=== PATIENT | female | born 1955 | race Caucasian/White ===

== ENCOUNTER 2016-10-25 08:30 | Day surgery (SDC) | payer OTHER ==
[~2016-10-25] VITALS: Ht 170.2 cm; Wt 100.0 kg
[~2016-10-25 08:30] MED LIST: ALBU8.5H2 INHALATION; CARI350T PO; CELE100C85 PO; CYCL10TA9 PO; HYDR2TAB27 PO; IBUP-1827 PO; KETO10TA PO; OXYC-466 PO; OXYC1TAB24 PO; THYR15TA PO; ZLP5T PO
[2016-10-25] MEDS ORDERED: Dexamethasone 10 mg/mL Inj ONE (08:31)
[2016-10-25] MEDS ORDERED: Iohexol 240 mg/mL 10 mL Inj ONE (08:31)
[2016-10-25 09:02] VITALS: BP 118/80; PULSE 60; RESP 14; O2SAT 99
[2016-10-25 09:30] VITALS: BP 144/69; PULSE 54; RESP 14; O2SAT 99
[2016-10-25 09:33] VITALS: BP 143/85; PULSE 60; RESP 16; O2SAT 99
[2016-10-25 09:36] VITALS: BP 155/71; PULSE 57; RESP 16; O2SAT 98
--- NOTE | 2016-10-25 12:57 | PCM.PROC ---
Procedure Note Date of Service: Oct 25, 2016 Pre Procedure Diagnosis: PROCEDURE: LEFT C6 transforaminal epidural steroid injection PRE-PROCEDURE DIAGNOSIS: Cervical radiculopathy POST-PROCEDURE DIAGNOSIS: same INDICATION: 61-year-old patient with LEFT arm pain consistent with cervical radiculopathy PERFORMED BY: Yunier Isaacs MD DESCRIPTION OF PROCEDURE: Patient was met in the holding area. Consent was signed, site was confirmed and all questions were answered. Patient was taken to the procedure suite and placed supine on the procedure table. An IV was placed with TKO NS. The side of the neck was prepped and draped in sterile fashion. The image intensifier was rotated to an oblique view to visualize the proper neuroforamen. Local anesthesia with 1% lidocaine was injected into the skin and superficial subcutaneous tissue. A 2 inch 25-gauge Quincke spinal needle was advanced towards the inferior/posterior aspect of the neural foramina. After the SAP of the neuroforamina was contacted with the spinal needle the bevel was directed anterior. The view was then changed to an AP view and the tip of the needle was stopped lateral to the sagittal midline of the articular pillar. Radiopaque contrast was injected under live fluoroscopy which demonstrated outline of the spinal nerve, dorsal root ganglion as well as spread into the epidural space. No vascular uptake was noted. 1 cc 1% lidocaine was injected. After 1 minute with no neurologic sequela, 10 mg of Decadron was injected. This was followed by another half cc of 1% lidocaine ANESTHESIA: Local. EBL: None. No Blood Products Used COMPLICATIONS: None SPECIMENS: None POST-PROCEDURE DISPOSITION: Patient was returned to the holding area in stable condition. They were discharged home when all discharge criteria were met. Evaluation/Physical Exam before discharge revealed: Preprocedure pain: 5/10. Post procedure pain: 3/10 (poor historian) DISCHARGE MEDICATIONS: (none unless otherwise noted) ASSESSMENT/ FOLLOW UP: Keep followup appointment with Dr. Martin Isaacs MD * Pain Management * Anesthesiology Yunier Isaacs MD Oct 25, 2016 12:57
[2016-12-02] MEDS ORDERED: ZOLP10TA5 PO (12:16)
[2016-12-02] MEDS ORDERED: OXYC1TAB24 PO (12:16)
[2016-12-02] MEDS ORDERED: armour thyroid (12:16)
[2016-12-02] MEDS ORDERED: CELE100C85 PO (12:16)
== END 2016-10-25 23:59 | disposition home or self-care (01) ==
LOC: END 08:30
PROVIDERS: ATTEND Anesthesiology Pain Medicine
DX: M54.12 Radiculopathy, cervical region (principal); M54.2 Cervicalgia
CPT/HCPCS: 64479; J1100

== ENCOUNTER 2016-12-03 11:38 | Inpatient (IN) | payer OTHER ==
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
[2016-12-03] VITALS (9 sets, daily range): BP systolic 128–171; BP diastolic 66–99; PULSE 60–101; RESP 10–20; O2SAT 91–99
[~2016-12-03] VITALS: Ht 167.6 cm; Wt 100.9 kg
[2016-12-03] MEDS: Lactated Ringer's 1,000 ML IV SCH ×4 (05:00→18:33)
[~2016-12-03 11:38] MED LIST changes: -ALBU8.5H2 INHALATION; +Bacitracin 50,000 unit Inj IRRIGATION ONE; -CARI350T PO; -CYCL10TA9 PO; +CeFAZolin Inj 2 GM in IV Premix 1 EACH IV SCH; -HYDR2TAB27 PO; -IBUP-1827 PO; -KETO10TA PO; -OXYC-466 PO; -THYR15TA PO; +Thrombin Powder 5,000 Unit TOPICAL ONE; -ZLP5T PO; +ZOLP10TA5 PO; +armour thyroid
[2016-12-03] MEDS ORDERED: fentaNYL-PF 50 mCg/mL 2 mL Inj IVPUSH PRN (13:45)
[2016-12-03] MEDS ORDERED: Phenylephrine 10,000 mCg/mL Inj IVPUSH PRN (13:45)
[2016-12-03] MEDS ORDERED: Ondansetron 2 mg/mL 2 mL Inj IVPUSH PRN ×3 (13:45→17:25)
[2016-12-03] MEDS ORDERED: Lactated Ringer's 500 ML IV PRN (13:45)
[2016-12-03] MEDS ORDERED: EPHEDrine Sulfate 50 mg/mL Inj IVPUSH PRN (13:45)
[2016-12-03] MEDS ORDERED: Dexamethasone 4 mg/mL Inj IVPUSH PRN (13:45)
[2016-12-03] MEDS ORDERED: Lactated Ringer's 1,000 ML IV SCH (13:45)
[2016-12-03] MEDS ORDERED: MetoCLOpramide 5 mg/mL 2 mL Inj IVPUSH PRN (13:45)
[2016-12-03] MEDS ORDERED: HYDROmorphone 1 mg/mL Inj IVPUSH PRN ×2 (13:45→17:25)
--- NOTE | 2016-12-03 13:45 | PCM.HPANE ---
Patient Data Surgeon Admitting Provider: Attending Provider:Bruno Salazar MD Primary Care Physician:Odilia Arteaga MD Other Provider:Stacey Enriquezingham Anesthesia Reason for Visit Cervical Radiculopathy Ht/WT & BMI Height (Feet): 5 Height (Inches): 6 Weight (Kilograms): 100.9 Body Mass Index 35.00 Allergies Coded Allergies: chlorhexidine (Unverified Allergy, Unknown, 12/02/16) latex (Verified Allergy, Unknown, UNKNOWN, 03/06/16) tramadol (Verified Allergy, Unknown, UNKNOWN, 03/06/16) nortriptyline (Verified Adverse Reaction, Severe, FAINTING, 03/06/16) Uncoded Allergies: CHLORHEXADINE GLUCONATE WIPES (Allergy, Severe, BURNING/REDNESS/ITCHING, 03/08/16) Past Anesthesia History Anesthesia History: Denies:: Anesthesia Reactions, Malignant Hyperthermia Diabetes History Hx Diabetes?: No Current Bedside Blood Glucose: 98 MRSA MRSA: No Medications Hypertension Medication: No Home Meds Incl Beta Blu: No Reported Medications Zolpidem 10 Mg [id number] Mg PO HS PRN For Insomnia Ref 0 12/02/16 oxyCODONE-Acetaminophen 5-325 mg 1 Each Tablet1 Tab PO Q6H PRN For Pain Ref 0 12/02/16 [armour thyroid] No Conflict Check7.5 Mg DAILY 12/02/16 Celecoxib 100 Mg [id number] Mg PO BID 12/02/16 Discontinued Reported Medications Celecoxib 100 Mg [id number] Mg PO BID 10/24/16 Hydromorphone (Dilaudid)2 Mg Tablet2-6 Mg PO HS PRN Pain 03/06/16 Cyclobenzaprine 10 Mg Rnvdrr58 Mg PO TID PRN Spasm 03/06/16 Thyroid,Pork ([place]riot Thyroid)15 Mg Tablet7.5 Mg PO DAILY 03/06/16 Albuterol HFA (Proair HFA)8.5 Gm Hfa.aer.ad2 Puffs INHALATION Q4H PRN PRN #1 INHALER 01/22/16 Zolpidem (Ambien)5 Mg Jwabxk34 Mg PO HS PRN For Insomnia Ref 0 01/22/16 Carisoprodol (Soma)350 Mg Xicspz953 Mg PO QID PRN For Pain 01/22/16 oxyCODONE-Acetaminophen 5-325 mg 1 Each Tablet1 Tab PO Q6H PRN For Pain Ref 0 01/22/16 History History of ENT Problems?: Yes HEENT History: Denies:: Abnormal Airway Cataracts Difficult Intubation Dysphagia Glaucoma Hearing Problem Sinus Problem TMJ Denture Type: None Teeth Condition: Within Normal Limits Hx of Heart Problems?: No Cardiovascular History: Denies:: Hypertension Hx of Respiratory Problem?: Yes Respiratory History: Positive for:: Asthma Denies:: COPD Chest Surgery Cough Dyspnea Emphysema Hemoptysis Oxygen Administration Pneumonia Pulmonary Embolism Tuberculosis Use of C-PAP Machine Use of Inhalers / NEBS Hx Neurologic Problems?: Yes Neurological History: Positive for:: Headaches (PROBABLY R/T PAIN MEDS) Hx of GI Problems?: Yes Hx of Problems?: No Genitourinary History: Denies:: Kidney Stones Female Hx: Positive for:: Problems with Breasts? (S/P BREAST REDUCTION) Denies:: Currently Skin History: Positive for:: History Skin Disorders? (MILD PSORIASIS ON FEET) Denies:: Pressure Ulcers Hx Musculoskeletal Problems?: Yes Musculoskeletal History: Positive for:: Back Injury (cervical radiculopathy current admission problem) Musculoskeletal Trauma (hx of left foot fusion. knee scope) Hx of Psycho/Social Problems?: No Hx Surgeries?: Yes (RT FOOT RPR,LT KNEE SCOPE,BILAT BREAST REDUCTION) Hx Any Other Health Problems?: Yes Other History: Positive for:: Thyroid Disease Denies:: Cancer Endocrine Disease Hospitalization History Blood Transfusions: Denies:: Blood Transfusions Hx Diabetes: NoBedside Blood Glucose: 98 Hx Alcohol Use: YesHx Substance Use: No Smoking Status: Unknown if Ever Smoker Have You Smoked inLast 12 mo: No Stop/Bang Treated for Sleep Apnea?: No Do You Have a CPAP Machine?: No S-Snoring: Do You Snore Loudly: No T-Tired: feel tired, fatigued: No O-Obsered: Observed not breath: No P-Blood Pressure: treated: No B- Body Mass Index > 35 kg/m2: Yes A- Age over 50: Yes N- Neck Large Circumference: No G- Gender Male: No HIMANSHU Total Score: 2 HIMANSHU Risk Assessment: Low Risk, <3 Yes Risk Assessment Category Category 1A: Patient has history of documented sleep apnea, and HAS NOT received any narcotic, sedative or anesthesia administration during this stay. Category 1B: Patient has history of documented sleep apnea, and HAS received any narcotic , sedative or anesthesia administration during this stay Category 2: Patient has SUSPECTED Obstructive Sleep Apnea, and HAS received any narcotic , sedative or anesthesia administration during this stay. Category 3: Patient has SUSPECTED Obstructive Sleep Apnea and HAS NOT received narcotic, sedative or anesthesia administration during this stay. Category 4: Outpatient in Procedural Areas with known sleep apnea or who screen positive for High Risk via the STOP/BANG questionnaire. Exam Exam Vital Signs Vital Signs Date Time Temp Pulse Resp B/P Pulse Ox O2 Delivery O2 Flow Rate FiO2 12/03/16 12:22 36.8 60 14 148/66 99 Room Air General Appearance: Oriented X3 HEENT/AIRWAY: MP 2 Lungs: Normal Air Movement Heart: Regular Rate/Rhythm Meds/Labs/Diagnostics Admission Meds Current Medications Lactated Ringer's (Lr) 1,000 ml @ 120 mls/hr Q8H20M IV Last administered on t 11:59; Start 12/03/16 at 05:00; Stop 12/03/16 at 13:19; Status DC Bedside Blood Glucose: 98 Plan Impression Patient chart reviewed, patient interviewed and anesthestic plan with risks, benefits, and alternatives discussed, and informed consent obtained. ASA Physical Status: ASA2 Mod Systemic Disease Anesthetic Plan: GA Bene/Risks/Altern/Consents: Yes HP Complete Prior to Induction: Yes Gilmer Rutledge MD Dec 03, 2016 13:45
[2016-12-03] MEDS ORDERED: Bacitracin 50,000 unit Inj ONE (14:15)
[2016-12-03] MEDS ORDERED: Thrombin Powder 5,000 Unit TOPICAL ONE (14:16)
[2016-12-03] MEDS ORDERED: Bupivacaine-MPF 0.5% W/EPI 30 mL Inj INFILTRATE ONE (14:50)
--- NOTE | 2016-12-03 15:14 | DRSVH ---
PROCEDURE: X-RAY CERVICAL SPINE, 1 VIEW INDICATIONS: CERVICAL RADICULOPATHY TECHNIQUE: Single lateral view of the cervical spine acquired. COMPARISON: None. FINDINGS: Bones: There is a surgical probe and anterior C5-C6 interspace. No suspicious bony lesions. Soft tissues: No prevertebral soft tissue swelling. IMPRESSION: Surgical probe at level of C5-6. Dictated by: Melissa Calderon M.D. on 12/03/2016 at 15:10 Approved by: Melissa Calderon M.D. on 12/03/2016 at 15:12
--- NOTE | 2016-12-03 17:08 | DRSVH ---
PROCEDURE: X-RAY CERVICAL SPINE, 1 VIEW INDICATIONS: C5-7 ACDF TECHNIQUE: Single lateral view of the cervical spine acquired. COMPARISON: [facility], CR, XR CERVICAL SPINE 1VW, 12/03/2016, 14:27. FINDINGS: Bones: Recent ACDF C5-C6 and C6-C7 with hardware and bone graft in expected position. IMPRESSION: Multilevel ACDF C5-C6 and C6-C7. Dictated by: Carrillo Lopez RRA Interpreted: Melissa Calderon MD on 12/03/2016 at 17:07 Transcribed by: OSWALDO on 12/03/2016 at 17:08 Approved by: Melissa Calderon M.D. on 12/04/2016 at 11:43
[2016-12-03] MEDS ORDERED: Benzocaine (Hurricaine) 20% Unit-Dose Spray MUC_MEMBRM PRN (17:20)
[2016-12-03] MEDS ORDERED: Promethazine Inj 50 MG in 0.9% Sodium Chloride-Pha MIX 100 ML IV PRN (17:20)
[2016-12-03] MEDS ORDERED: Magnesium Hydroxide 10 mL Oral Concentration PO PRN (17:25)
[2016-12-03] MEDS ORDERED: Sodium Biphos-Phos 133 mL Enema RECTAL PRN (17:25)
[2016-12-03] MEDS ORDERED: Benzocaine-Menthol Lozenge 2/Pkg MT PRN (17:25)
[2016-12-03] MEDS ORDERED: Polyethylene Glycol (PEG) 17 Gm Powder PO PRN (17:25)
[2016-12-03] MEDS ORDERED: Senna-Docusate 8.6-50 mg Tablet PO PRN (17:25)
--- NOTE | 2016-12-03 18:42 | NUR ---
Arrived on Unit Patient arrived on floor from PACU in stable condition at 1805. Transported in bed. VSS. A&Ox3. Patient denies pain and nausea at this time. Soft collar in place. Orientated to call light, bed, and visitation hours. Patient belongings brought down from day surgery. Call light and tray table within reach. Will continue to monitor patient hourly.
[2016-12-03] MEDS: hydrOXYzine Pamoate 25 mg Capsule PO PRN ×2 (19:36→21:01)
--- NOTE | 2016-12-03 19:49 | NUR ---
Sore throat P: Pain in throat with swallowing. Patients states "Sometimes things get hung up when I swallow" I: Applied ice pack on lower neck at the sternal notch to assist with pain control and swallowing. Vistaril was administered at 25mg PO with apple sauce. Patient tolerated swallowing this with minimum discomfort and difficulty. Set up suction at bed side. Patient denied N/V though patient described having upper gastric gas, minimal belching has occurred. E: Will reassess patient's throat discomfort to see if Vistaril has been effective. Patient instructed to call RN if she needs additional 25mg dosage of Vistaril given. S: Call light is within reach. Side rails up x2. Bed in low position and wheels locked. Was instructed to call before getting up to prevent falling.
[2016-12-03] MEDS: Senna-Docusate 8.6-50 mg Tablet PO SCH (20:30)
[2016-12-03] MEDS ORDERED: 0.9% Sodium Chloride 250 ML ONE (20:55)
[2016-12-03] MEDS: Acetaminophen IV 1,000 MG in IV Premix 1 EACH IV SCH (21:13)
[2016-12-03] MEDS: Dexamethasone 4 mg/mL Inj IVPUSH SCH (21:14)
[2016-12-03] MEDS: CeFAZolin Inj 2 GM in IV Premix 1 EACH IV SCH (23:23)
--- NOTE | 2016-12-03 23:45 | OP ---
[address] [address] OPERATIVE REPORT PATIENT: MEE TRAN : 1955 MR#: [id number] ADMIT: 12/03/2016 JOB ID: [id number] DATE OF SURGERY: 12/03/2016 PREOPERATIVE DIAGNOSIS(ES): 1. C5-C6, C6-C7 stenosis. 2. Bilateral C6 and C7 radiculopathy. POSTOPERATIVE DIAGNOSIS(ES): 1. C5-C6, C6-C7 stenosis. 2. Bilateral C6 and C7 radiculopathy. PROCEDURE: 1. C5-C6, C6-C7 anterior cervical diskectomy and fusion. 2. C5, C6, C7 anterior cervical plate with NuVasive Archon plate and NuVasive peek cages, C5-C6 and C6-C7. 3. [place] iliac crest bone marrow through a separate incision. 4. NuVasive osseous cell allograft. SURGEON: Bruno Salazar MD ANIMAL PATHOLOGY TEACHER: Arturo Ramsey PA-C, provided irrigation and retraction, was medically necessary for the procedure. OPERATIVE PROCEDURE: The patient was brought to the operating room. General anesthesia with oral intubation was administered. The patient was positioned supine with a neck roll. The anterior neck was prepped and draped in a sterile fashion. Time-out was performed. IV Ancef was given. All extremities were padded. Compression boots were placed on the legs. A horizontal incision was made from the midline towards the right at the cricoid cartilage level 4 cm in length. The incision was carried down through the subcutaneous tissue. Platysma muscle was dissected free and incised horizontally and the plane was developed between the sternocleidomastoid laterally and the strap muscles medially until the anterior aspect of the cervical spine was encountered. Localizing x-ray was taken with the needle in the C5-C6 disc to confirm the levels. Longus coli muscles were dissected off the spine from C5-C7. A deep self-retaining retractor was placed. Anterior osteophytes were removed with bone rongeur. Distracting pins were placed in the C5 and C6 vertebral bodies. The disc was incised and distracted open. Diskectomy was carried out with curettes and pituitary rongeurs under the operating microscope with microdissection technique. Posterior disc material was removed with a curette and Kerrison rongeur, and the posterior osteophytes were drilled down with high-speed bur. The uncovertebral joints were resected and wide bilateral foraminotomies were carried out. The posterior lateral ligament was resected and the thecal sac and exiting C6 nerve roots were completely visualized and decompressed. The endplates were prepared with a bur. The space was measured, and a 5 mm height anatomically shaped peek cage was selected. A bone harvesting needle was tapped into the right anterior iliac crest and 1 cc of bone marrow was harvested. This was mixed with 2 cc of Osteocel allograft. The graft material was packed inside the cage and the cage was impacted into the disc space. Distracting pin was removed from C5 and placed in C7. Identical procedure was carried out in the C6-C7 level. Here once again, posterior osteophytes were removed with the bone rongeur and 2 mm Kerrison. Uncovertebral joints were resected. The exiting C7 nerve roots were fully visualized and decompressed. The endplates were prepared with a bur. The space was measured and a 6 mm height peek cage was selected and filled with the graft material, and impacted into the disc space. The distracting pins were removed and the holes filled with bone wax. The appropriate size NuVasive Archon titanium plate was affixed to the spine. Machine Coil Assembler holes were made with an awl and 15 mm variable angle screws were placed at C5 and C7, two at each level, and 13 mm fixed angle screws were placed at C6. Locking tabs in the plate were rotated to cover the screw heads and prevent screw backout. The wound was irrigated and inspected carefully, and there was no bleeding. The wound was closed with 3-0 Vicryl platysma, 3-0 Vicryl in the deep dermis and Steri-Strips in the skin. Sterile dressing was applied. The patient was placed in a soft collar, awakened, extubated, and brought to the recovery room in stable condition. There were no complications. ESTIMATED BLOOD LOSS: 50 cc.
[2016-12-04 00:41] VITALS: BP 155/82; PULSE 84; RESP 18; O2SAT 96
[2016-12-04] MEDS: Acetaminophen IV 1,000 MG in IV Premix 1 EACH IV SCH ×4 (01:01→18:14)
[2016-12-04] MEDS: Dexamethasone 4 mg/mL Inj IVPUSH SCH ×4 (01:02→18:15)
[2016-12-04] MEDS: Lactated Ringer's 1,000 ML IV SCH ×3 (04:33→17:22)
[2016-12-04 05:30] VITALS: BP 132/81; PULSE 73; RESP 18; O2SAT 96
[2016-12-04] MEDS: CeFAZolin Inj 2 GM in IV Premix 1 EACH IV SCH (07:04)
--- NOTE | 2016-12-04 07:19 | NUR ---
Soft Foods Pt prefers pudding to apple sauce, meds crushed for easier swallow. Pain managed with muscle relaxers, roxicodone one time this shift, ambien for sleep aid. Ice used on shoulders. Pt ambulating to bathroom. IV infusing LR/ABX or NS/APAP. Drainage noted at hip site. Soft collar at neck. Care continues
[2016-12-04] MEDS ORDERED: THYROID SCH (08:30)
[2016-12-04] MEDS: Senna-Docusate 8.6-50 mg Tablet PO SCH (08:30)
--- NOTE | 2016-12-04 09:48 | PCM.ANEP1 ---
Post Anesthesia PACU Phase 1 Assessment Vital Signs Vital Signs Date Time Temp Pulse Resp B/P Pulse Ox O2 Delivery O2 Flow Rate FiO2 12/04/16 05:30 36.9 73 18 132/81 96 Nasal Cannula 2.00 Anesthetic Administered: GA Level of Alertness: Awake, talking DURAN's with Equal Strength: Yes Pain: Yes (but still bearable) Pain Scale Score: 2 Nausea or Vomiting: No CV Function & Hydration Stable: Yes Airway Device: Lungs: Normal Air Movement PACU Phase 2 Assessment Patient Instructions Provided: N/A Gilmer Rutledge MD Dec 04, 2016 09:48
--- NOTE | 2016-12-04 10:04 | PCM.DISURG ---
Surgical Discharge Instruction Date of Service Dec 04, 2016 Dates of Hospitalization Date of Hospital Admission Dec 03, 2016 at 18:09 Providers Admitting Physician: Bruno Salazar MD Primary Care Physician: Odilia Arteaga MD Attending Physician: Bruno Salazar MD Discharge Diagnosis Discharge Diagnosis Status post C5-6 & C6-7 anterior cervical discectomy and fusion, with peek cages 2, iliac crest bone marrow aspiration, & anterior cervical plating from C5-7 Post Operative diagnosis Status post C5-6 & C6-7 anterior cervical discectomy and fusion, with peek cages 2, iliac crest bone marrow aspiration, & anterior cervical plating from C5-7 Additional Instructions Discharge Instructions Anterior Cervical Discectomy and Fusion What is my recovery like? The hospital stay is usually overnight. After the surgery, you might have a sore throat. This is very common due to the retraction (moving) of the esophagus and trachea. The sore throat usually resolves in 1-2 weeks. Drinking lots of fluids will help improve the symptoms. The cervical collar should be worn at night and for comfort only during the day. On your postoperative follow- up appointments, your Doctor will perform X-rays to see how well everything is healing. What are my restrictions? You should not lift anything heavier than five pounds. Avoid excessive movements of your neck until instructed specifically by your Doctor. Can I Shower? You may shower when you go home. You must remove the outside dressing on the 7th day after surgery, or change dressing as needed if soiled or saturated ( replacing new sterile gauze & water proof dressing) otherwise leave alone. The small pieces of tape (steri-strips) directly on top of the incision may get wet. The steri-strips will fall off on their own. Can I drive? No, you should not drive until specifically given permission from your Doctor in a follow up appointment. Most Patient's can drive in 2-3 weeks if they are not taking narcotic pain medications or muscle relaxers. You may ride in a car, but should avoid trips longer than two hours in duration. When can I return work / sports? Your Doctor will discuss your return to work with you on your first postoperative follow-up appointment. Most patients may return to work within 2 weeks for sedentary jobs. More physically demanding jobs may require 3-6 months of healing before such work can be considered. When should I call the doctor? You should call your Doctor or go to the Emergency Department if you develop chest pain, shortness of breath, a temperature greater than 101.5 F, severe uncontrolled pain or weakness, loss of bowel or bladder function, choking, swelling, lots or drainage, pus discharge or constipation. Instructions Regarding Comfort & Pain Medication Use: During the recovery period , even with the use of pain medication, you may experience pain at the site of surgery. You may also have the same type of pain you had before surgery. Please use your pain scale as a guide for taking your pain medication. When your pain is greater than 4 out of 10, or when your pain reaches your personal tolerable level of pain, take your pain medication as prescribed. Use your pain medication on an 'as needed' basis. This means if your pain level is within your tolerable level of pain you DO NOT need to take the medication. As you get better, you will notice you can increase the time interval between doses and decrease the number of tablets you are taking, gradually taking less and less pain medication. Taking pain medication when it is not necessary (for example when your pain is tolerable or acceptable) can result in dangerous side effects and over- sedation. Signs and symptoms of over-sedation include: drowsiness, excessive sleeping, slow or difficult breathing, slurred speech, impaired thinking, confusion, impaired motor coordination. If you have any of these symptoms stop taking the medication and immediately contact your doctor. IF SYMPTOMS ARE LIFE THREATENING CALL 911. To decrease pain and swelling, frequently apply an ice pack for 20 min intervals with at least one hour off. When to take Acetaminophen for pain? If you don't have liver problems, allergies and/or Tylenol is not in your current pain medication. Take Extra Strength Tylenol 500mg 2 tabs by mouth every 6 hours as needed for pain. DO NOT EXCEED 8 TABS PER DAY. Follow Up Plan Follow Up Plan Follow-up with physician volleyball assistant coach and outpatient neurosurgical clinic in 1 week for wound check. Follow-up Provider (F9): Arturo Ramsey PA-C Additional Information Attending Statement All documentation reviewed #orders authorized by Claude Bui Scott PA-C Dec 04, 2016 10:04
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
--- NOTE | 2016-12-04 10:46 | NUR ---
Social Work- Screening/Readiness for Discharge Data: EMR reviewed. Pt is a 61 year old female admitted 12/03/16 for cervical radiculopathy per H&P. Pt is medically stable for discharge, likely to discharge later today. OT entered pt's room to work with pt when SW was finished. Pt's insurance is [employer] and PCP is Odilia Arteaga MD. Pt's NOK is not listed, pt identified her brother Pierre Harding as NOK [phone]. Pt resides in [facility] where she is independent at baseline. Pt confirms that she has neighbors and friends coordinated to assist her with meals, transportation, and other needs at home while she is in her neck brace. Pt has no DPOA on file, though she states she has completed one a long time ago. SW provided paperwork and encouraged pt to update DPOA when she is able. Pt uses no DME at baseline, though she is considering getting a cane after this admission. Pt continues to drive. PT has cleared pt for home with outpt PT. Pt to discharge home with friend to transport via POV. SW placed phone number and plan on whiteboard. No discharge needs identified at this time. SW will continue to follow if needs arise. Assessment: Pt who is independent at baseline but who will receive assistance from friends and family at home. Plan: Pt to discharge home with friend to transport via POV. SW placed phone number and plan on whiteboard. No discharge needs identified at this time. SW will continue to follow if needs arise. OLIVIA Nguyen
--- NOTE | 2016-12-04 11:28 | NUR ---
Evaluation completed. Please go to "Notes" then click on "Assessments and Notes" (bottom left corner of screen). Then select appropriate discipline tab on top of screen.
[2016-12-04 12:16] VITALS: PULSE 80; RESP 14; O2SAT 96
--- NOTE | 2016-12-04 12:42 | NUR ---
Evaluation completed. Please go to "Notes" then click on "Assessments and Notes" (bottom left corner of screen). Then select appropriate discipline tab on top of screen.
[2016-12-04 14:04] VITALS: BP 131/83; PULSE 87; RESP 18; O2SAT 97
[2016-12-04] MEDS ORDERED: Succinylcholine Chloride 20 mg/mL 5 mL Inj ONE (19:47)
[2016-12-04] MEDS ORDERED: HYDROmorphone 2 mg/mL Inj ONE (19:47)
[2016-12-04] MEDS ORDERED: Ketamine 10 mg/mL 20 mL Inj ONE (19:47)
[2016-12-04] MEDS ORDERED: Propofol 10,000 mCg/mL 20 mL Inj ONE (19:47)
[2016-12-04] MEDS ORDERED: Dexamethasone 4 mg/mL Inj ONE (19:47)
[2016-12-04] MEDS ORDERED: Ondansetron 2 mg/mL 2 mL Inj ONE (19:47)
[2016-12-04] MEDS ORDERED: MetoCLOpramide 5 mg/mL 2 mL Inj ONE (19:47)
--- NOTE | 2016-12-04 19:48 | NUR ---
Discharge Patient discharged home this evening after dressings changed to incision sites and discharge instructions discussed. patient given verbal and written home care instructions and teaching on signs/symptoms to report or seek medical attention for. Pt will follow up with surgeon in 1 week as requested.
== END 2016-12-04 19:48 | disposition home or self-care (01) | DRG 30 ==
LOC: SAS 11:38 → OSC 18:09
PROVIDERS: ADMIT Neurological Surgery; ATTEND Neurological Surgery
PROC: 0RG20A0 Fusion of 2 or more Cervical Vertebral Joints with Interbody Fusion Device, Anterior Approach, Anterior Column, Open Approach (ICD-10-PCS; 2016-12-03)
PROC: 0RG2070 Fusion of 2 or more Cervical Vertebral Joints with Autologous Tissue Substitute, Anterior Approach, Anterior Column, Open Approach (ICD-10-PCS; 2016-12-03)
PROC: 07DR3ZZ Extraction of Iliac Bone Marrow, Percutaneous Approach (ICD-10-PCS; 2016-12-03)
PROC: 0RT30ZZ Resection of Cervical Vertebral Disc, Open Approach (ICD-10-PCS; principal; 2016-12-03 13:30)
DX: M54.12 Radiculopathy, cervical region (principal); M48.02 Spinal stenosis, cervical region